=== PATIENT | male | born 1960 | race African-American/Black ===

== ENCOUNTER → 2016-09-20 | Outpatient (REF) | payer OTHER | LOC: M LAB REF 16:22 | PROVIDERS: ATTEND Physician Assistant | DX: R50.9 Fever, unspecified (principal); M79.1 Myalgia ==

== ENCOUNTER → 2017-05-30 | Outpatient (REF) | payer OTHER ==
[~2017-05-30] MED LIST: AMLO5TAB2 PO; LISI-538 PO; MULT1TAB10 PO; TRAM50TA2 PO
[2017-05-30 16:25] LABS: MEAN CORPUSCULAR HEMOGLOBIN 29.2 pg (27.0-33.0); MEAN CORPUSCULAR HGB CONC 35.4 g/dl (32.0-36.5); MEAN CORPUSCULAR VOLUME 82.6 fl (80.0-96.0); RED CELL DISTRIBUTION WIDTH 12.4 % (11.5-14.5); WHITE BLOOD COUNT 5.7 10^3/uL (4.0-10.0)
[2017-05-30 18:23] LABS: ERYTHROCYTE SEDIMENTATION RATE 3 mm/hr (0-20)
[2017-06-02 00:08] LABS: Lyme Disease IgG/IgM Antibodie <0.91 ISR (0.00-0.90); Lyme Disease IgM Ab Quantitati <0.80 index (0.00-0.79)
== END ==
LOC: M LABDRAW1 13:54
PROVIDERS: ATTEND Orthopaedic Surgery
DX: M25.511 Pain in right shoulder (principal)

== ENCOUNTER 2017-06-12 09:43 | Outpatient (CLI) | payer OTHER ==
[~2017-06-12] VITALS: Ht 182.9 cm; Wt 81.6 kg
[2017-06-12] MEDS ORDERED: NS 1,000 ML IV ONE (10:45)
[2017-06-12] MEDS ORDERED: PROPOFOL 200 MG/20 ML VIAL As Ordered ONE (10:52)
--- NOTE | 2017-06-12 11:08 | ROOR ---
Patient Name: Jeffrey Krishnan Procedure Date: 06/12/2017 10:52 AM Date of : 1960 Age: 57 Room: [facility] Gender: Male Note Status: Finalized Procedure: Colonoscopy Indications: Screening in patient at increased risk: Family history of colorectal cancer before age 60 years. (Uncle age 52) Providers: Roberto CAMPOS MD Referring MD: Alejo Lozano MD Requesting Provider: Medicines: Monitored Anesthesia Care Complications: No immediate complications. Procedure: Pre-Anesthesia Assessment: - The heart rate, respiratory rate, oxygen saturations, blood pressure, adequacy of pulmonary ventilation, and response to care were monitored throughout the procedure. The Colonoscope was introduced through the anus and advanced to the cecum, identified by appendiceal orifice and ileocecal valve. The colonoscopy was performed without difficulty. The patient tolerated the procedure well. The quality of the bowel preparation was good. Findings: The perianal and digital rectal examinations were normal. (Exam: Complete, Prep: Good or Excellent.) Small Internal Hemorrhoids. The entire examined colon appeared normal on direct and retroflexion views. Impression: - (Exam: Complete, Prep: Good or Excellent.) - Small Internal Hemorrhoids. - The entire examined colon is normal on direct and retroflexion views. - No specimens collected. Recommendation: - Repeat colonoscopy in 5 years for screening purposes. Roberto Campos MD Roberto CAMPOS MD 06/12/2017 11:08:13 AM This report has been signed electronically. Number of Addenda: 0 Note Initiated On: 06/12/2017 10:52 AM Estimated Blood Loss: Estimated blood loss: none.
[2017-06-12 11:50] VITALS: BP 111/62
== END 2017-06-12 11:52 | disposition home or self-care (01) ==
LOC: M OPP 09:43
PROVIDERS: ATTEND Internal Medicine Gastroenterology
DX: Z12.11 Encounter for screening for malignant neoplasm of colon (principal); Z80.0 Family history of malignant neoplasm of digestive organs; K64.8 Other hemorrhoids; I10 Essential (primary) hypertension; F43.10 Post-traumatic stress disorder, unspecified; Z79.899 Other long term (current) drug therapy; Z80.1 Family history of malignant neoplasm of trachea, bronchus and lung

== ENCOUNTER 2017-08-01 16:00 | Outpatient (RCR) | payer OTHER | END 2017-08-03 | LOC: M PT 16:00 | PROVIDERS: ATTEND Orthopaedic Surgery | DX: Z51.89 Encounter for other specified aftercare (principal); M50.30 Other cervical disc degeneration, unspecified cervical region; M25.511 Pain in right shoulder; M54.12 Radiculopathy, cervical region ==

== ENCOUNTER 2017-08-04 13:34 | Outpatient (RCR) | payer OTHER | END 2017-09-03 | LOC: M PT 08-08 11:18 | DX: Z51.89 Encounter for other specified aftercare (principal); M54.12 Radiculopathy, cervical region; M25.511 Pain in right shoulder; M50.30 Other cervical disc degeneration, unspecified cervical region | CPT/HCPCS: 97010 ==

== ENCOUNTER → 2017-09-19 | Outpatient (REF) | payer OTHER ==
[2017-09-19 18:50] LABS: INR 0.97
[2017-09-19 18:51] LABS: PARTIAL THROMBOPLASTIN TIME 26.9 SECONDS (26.8-37.9)
[2017-09-19 19:00] LABS: PLATELET COUNT, AUTOMATED 213 10^3/uL (150-450)
== END ==
LOC: M LABDRAW1 15:47
DX: M50.33 Other cervical disc degeneration, cervicothoracic region (principal)

== ENCOUNTER → 2017-10-11 | Outpatient (REF) | payer OTHER ==
[2017-10-11 12:41] LABS: PSA SCREENING 1.68 NG/ML (< 4.0)
== END ==
LOC: M SFHCLERA 10:28
DX: Z12.5 Encounter for screening for malignant neoplasm of prostate (principal)

== ENCOUNTER 2018-08-06 12:27 | Emergency (ER) | payer OTHER, SELFPAY ==
[2018-08-06] MEDS: KETOROLAC 60 MG/2 ML VIAL (J1885) IM (17:24)
== END 2018-08-06 18:16 | disposition home or self-care (01) ==
LOC: M ED 12:27
DX: M62.830 Muscle spasm of back (principal); M51.9 Unspecified thoracic, thoracolumbar and lumbosacral intervertebral disc disorder; I10 Essential (primary) hypertension; Z79.899 Other long term (current) drug therapy; Z79.891 Long term (current) use of opiate analgesic
CPT/HCPCS: J1885

== ENCOUNTER 2018-08-22 16:04 | Emergency (ER) | payer OTHER ==
[2018-08-22] MEDS: METHOCARBAMOL 500 MG TAB PO (17:08)
[2018-08-22] MEDS: NAPROXEN 250 MG TAB PO (17:08)
[2018-08-22] MEDS: PERCOCET 5MG/325MG TAB PO (17:09)
== END 2018-08-22 18:24 | disposition home or self-care (01) ==
LOC: M ED 16:04
DX: S39.012A Strain of muscle, fascia and tendon of lower back, initial encounter (principal); S29.019A Strain of muscle and tendon of unspecified wall of thorax, initial encounter; R93.7 Abnormal findings on diagnostic imaging of other parts of musculoskeletal system; T14.8XXA Other injury of unspecified body region, initial encounter; V49.40XA Driver injured in collision with unspecified motor vehicles in traffic accident, initial encounter; Y92.410 Unspecified street and highway as the place of occurrence of the external cause; I10 Essential (primary) hypertension
CPT/HCPCS: 73080

== ENCOUNTER → 2018-11-11 | Outpatient (REF) | payer OTHER ==
[2018-11-10 21:57] LABS: INFLUENZA A AMPLIFICATION POSITIVE (NEGATIVE); INFLUENZA B AMPLIFICATION NEGATIVE (NEGATIVE)
[~2018-11-11] MED LIST changes: -AMLO5TAB2 PO; +AMLO5TAB6 PO; +NAPR-50 PO; +ROBA500T PO; +VOLT1GEL15 TOP
== END ==
LOC: M LAB REF 11:13
PROVIDERS: ATTEND Physician Assistant
DX: J11.1 Influenza due to unidentified influenza virus with other respiratory manifestations (principal)

== ENCOUNTER 2018-11-28 14:30 | Outpatient (RCR) | payer OTHER | END 2018-12-02 | LOC: M PT 14:30 | PROVIDERS: ATTEND Family Medicine | DX: Z51.89 Encounter for other specified aftercare (principal); M25.551 Pain in right hip; M54.6 Pain in thoracic spine; M25.522 Pain in left elbow; M25.552 Pain in left hip ==

== ENCOUNTER 2018-12-20 15:15 | Outpatient (RCR) | payer OTHER ==
[~2018-12-20 15:15] MED LIST changes: -NAPR-50 PO; +NAPR-837 PO
== END 2019-01-01 ==
LOC: M PT 15:15
PROVIDERS: ATTEND Family Medicine
DX: M25.551 Pain in right hip (principal); M25.552 Pain in left hip; M54.6 Pain in thoracic spine

== ENCOUNTER → 2021-06-29 | Outpatient (CLI) | payer OTHER ==
[~2021-06-29] MED LIST changes: +AMLO1TAB24 PO; -AMLO5TAB6 PO; -LISI-538 PO; +LISI20TA33 PO
--- NOTE | 2021-06-29 19:59 | REPVR ---
PROCEDURE INFORMATION: Exam: MR Lumbar Spine Without Contrast Exam date and time: 06/29/2021 6:18 PM Age: 61 years old Clinical indication: Low back pain TECHNIQUE: Imaging protocol: Multiplanar magnetic resonance images of the lumbar spine without intravenous contrast. COMPARISON: CT Spine, lumbar w/o contrast 08/22/2018 5:19 PM FINDINGS: Vertebral body heights are maintained. Modic type 1 edematous degenerative endplate change at L4-L5. No cord compression. No abnormal cord signal. Conus medullaris terminates at the L1 level. Paravertebral soft tissues are unremarkable. L1-L2: Broad-based disc bulge causes mild bilateral foraminal narrowing. No significant canal narrowing. L2-L3: Broad-based disc bulge without significant canal or foraminal narrowing. L3-L4: Broad-based disc bulge and facet hypertrophy cause mild bilateral foraminal narrowing. No significant canal narrowing. L4-L5: Broad-based disc bulge and facet hypertrophy cause mild canal narrowing and moderate bilateral foraminal narrowing. L5-S1: Broad-based disc bulge and facet hypertrophy cause mild canal narrowing and mild bilateral foraminal narrowing. IMPRESSION: Multilevel spondylotic changes of the lumbar spine, as detailed above. Electronically signed by: Santana Pool On 06/29/2021 19:59:36 PM
== END ==
LOC: M RAD 17:04
PROVIDERS: ATTEND Family Medicine
DX: M51.26 Other intervertebral disc displacement, lumbar region (principal); M51.27 Other intervertebral disc displacement, lumbosacral region; M47.816 Spondylosis without myelopathy or radiculopathy, lumbar region; G56.01 Carpal tunnel syndrome, right upper limb; F41.9 Anxiety disorder, unspecified

== ENCOUNTER → 2021-09-21 | Outpatient (CLI) | payer OTHER | LOC: M PAIN 13:00 | PROVIDERS: ATTEND Nurse Practitioner Family | DX: M51.16 Intervertebral disc disorders with radiculopathy, lumbar region (principal); G89.29 Other chronic pain; R73.03 Prediabetes; Z86.59 Personal history of other mental and behavioral disorders; Z79.899 Other long term (current) drug therapy ==

== ENCOUNTER → 2022-07-31 | Outpatient (CLI) | payer OTHER ==
[~2022-07-31] MED LIST changes: +AMLO1TAB25 PO; +ATOR40TA75 PO; +B-2100TA PO; +BACL10TA2 PO; +DICL1GEL3 TOP; +DULO1CAP4 PO; +GLIM1TAB4 PO; +LISI40TA4 PO; +OMEP40CA5 PO; +TADA5TAB PO; +TRAZ-257 PO; +VALA1TAB5 PO; +VITMTA PO
== END ==
LOC: M LABSMTC 09:49
PROVIDERS: ATTEND Anesthesiology
DX: Z01.812 Encounter for preprocedural laboratory examination (principal); Z11.52 Encounter for screening for COVID-19

== ENCOUNTER 2022-08-04 11:31 | Day surgery (SDC) | payer OTHER ==
[~2022-08-04] VITALS: Ht 190.5 cm; Wt 89.1 kg
[~2022-08-04 11:31] MED LIST changes: +NS 1,000 ML IV ONE
[2022-08-04] MEDS ORDERED: propofoL 200 MG/20 ML VIAL As Ordered ONE (14:00)
[2022-08-04] MEDS ORDERED: fentaNYL 100 MCG/2 ML INJECTION As Ordered ONE (14:01)
[2022-08-04] MEDS ORDERED: LIDOCAINE 2% 100MG/5ML SDV (FOR ANES.) As Ordered ONE (14:16)
[2022-08-04] MEDS ORDERED: NALOXONE INJ 0.4MG/1ML VIAL As Ordered ONE (14:33)
[2022-08-04 14:53] VITALS: BP 158/81
== END 2022-08-04 15:09 | disposition home or self-care (01) ==
LOC: M OPP 11:31
PROVIDERS: ATTEND Internal Medicine Gastroenterology
DX: Z12.11 Encounter for screening for malignant neoplasm of colon (principal); Z80.0 Family history of malignant neoplasm of digestive organs; D12.5 Benign neoplasm of sigmoid colon; K64.8 Other hemorrhoids; R12 Heartburn; I10 Essential (primary) hypertension; Z79.02 Long term (current) use of antithrombotics/antiplatelets; Z79.84 Long term (current) use of oral hypoglycemic drugs; Z79.899 Other long term (current) drug therapy
CPT/HCPCS: 43235; 45385; 88305; J2310; J3010

== ENCOUNTER → 2025-01-18 | Outpatient (CLI) | payer OTHER ==
[~2025-01-18] MED LIST changes: +DICL100G10 TOP; -DICL1GEL3 TOP; -GLIM1TAB4 PO; +GLIM1TAB84 PO; -NS 1,000 ML IV ONE; -TADA5TAB PO; +TADA5TAB2 PO
== END ==
LOC: M RAD 14:29
PROVIDERS: ATTEND Family Medicine
DX: M25.512 Pain in left shoulder (principal); M75.32 Calcific tendinitis of left shoulder; M19.012 Primary osteoarthritis, left shoulder; S43.402A Unspecified sprain of left shoulder joint, initial encounter; X58.XXXA Exposure to other specified factors, initial encounter; Y92.9 Unspecified place or not applicable

== ENCOUNTER → 2025-04-15 | Outpatient (CLI) | payer OTHER ==
[~2025-04-15] MED LIST changes: +LISI40TA10 PO; -LISI40TA4 PO
[2025-04-15 12:17] LABS: CREATININE FOR GFR 1.08 MG/DL (0.70-1.30); GLOMERULAR FILTRATION RATE 77.1 (>49)
== END ==
LOC: M PLALAB 08:41
PROVIDERS: ATTEND Physician Assistant Surgical
DX: Z00.00 Encounter for general adult medical examination without abnormal findings (principal); M54.50 Low back pain, unspecified